=== PATIENT | female | born 1990 | race Caucasian/White ===

== ENCOUNTER 2016-05-01 17:17 | Emergency (ER) | payer MEDICAID ==
[~2016-05-01] VITALS: Ht 162.6 cm; Wt 65.5 kg
[~2016-05-01 17:17] MED LIST: CYMB30CA PO; FERR324T4 PO; IBUP-238 PO; MEDR150P IM; PROZ20CA11 PO; TRAZ50TA4 PO
[2016-05-01 17:24] VITALS: BP 122/84; PULSE 68; RESP 16; TEMP 98; O2SAT 99
[2016-05-01] MEDS ORDERED: PENI250T59 PO (17:34)
[2016-05-01] MEDS ORDERED: TRAM50TA PO (17:34)
--- NOTE | 2016-05-01 17:35 | PD ---
HPI Chief Complaint: Oral / Dental Pain or Problem Time Seen by Provider: 17:34 Travel History International Travel<30 days: No Contact w/Intl Traveler<30days: No Traveled to known affect area: No History of Present Illness HPI 25-year-old female presents to the emergency department for evaluation of left upper dental pain for 1 day. Patient states she has had intermittent left upper dental pain for several months. States that usually the pain lasts only a few minutes and resolves on its own. States that today the pain has been constant since this morning. States she has taken multiple doses of ibuprofen and tylenol today without relief of symptoms. Pain is aggravated with palpation , talking, air, fluids. Denies any fever, chills, nausea, vomiting, difficulty swallowing, facial swelling. Denies , last menstrual cycle was 2 weeks ago. No other complaints. PFSH Past Medical History Anxiety: Yes Depression: Yes Cardiovascular Problems: No Diabetes: No Diminished Hearing: No Genitourinary: No Hepatitis: No Hiatal Hernia: No Musculoskeletal: Yes (CERVICAL SURGERY 06/2013) Neurologic: No Reproductive: Yes (OVARIAN CYST) Respiratory: No Immunizations Current: Yes Thyroid Disease: Yes (PT STATED "HYPERTHYROID" ) ?: Not LMP: 2 WEEKS AGO : 2 Para: 2 Miscarriage: 0 : 0 Past Surgical History Genitourinary Surgery: Yes (RIGHT NEPHROSTOMY TUBE PLACEMENT AND REMOVAL) Other Surgery: No Social History Alcohol Use: No Tobacco Use: No Substance Use: No Allergies-Medications (Allergen,Severity, Reaction): Coded Allergies: Ativan (Verified Adverse Reaction, Severe, "Makes me act crazy", 05/01/16) Reported Meds & Prescriptions Reported Meds & Active Scripts Active Penicillin Vk (Penicillin V Potassium) 250 Mg Tab 500 Mg PO Q8H 10 Days Tramadol (Tramadol HCl) 50 Mg Tab 50 Mg PO Q6H PRN Ferrous Sulfate 324 Mg Tab 325 Mg PO DAILY Motrin (Ibuprofen) 800 Mg Tab 800 Mg PO TID Reported Cymbalta (Duloxetine HCl) 30 Mg Cap 30 Mg PO DAILY Prozac (Fluoxetine HCl) 20 Mg Cap 20 Mg PO DAILY Depoprovera 150 Mg Vial (Medroxyprogesterone Acetate) 150 Mg/Ml Susp 150 Mg IM Q90D Trazodone Hcl (Trazodone HCl) 50 Mg Tab 50 Mg PO HS Review of Systems Except as stated in HPI: all other systems reviewed are Neg Physical Exam Narrative GENERAL: Well-nourished and well-developed pleasant patient in no acute distress who is nontoxic appearing. SKIN: Warm and dry. HEAD: Normocephalic and atraumatic. No facial swelling. EYES: No injection, drainage, or hyphema noted. PERRLA. EOMI. ENT: No nasal drainage noted. Oropharynx is clear and the TMs are normal with good landmarks. DENTAL: Left upper posterior molar with dental caries and tenderness to palpation of adjacent gingiva. No erythema, warmth, discharge or drainage. NECK: Supple and the trachea is midline. CARDIOVASCULAR: Regular rate and rhythm. RESPIRATORY: Breath sounds are equal bilaterally with no accessory muscle use, wheezing, rhonchi, or crackles. NEUROLOGICAL: Awake, alert, and oriented. Normal speech and gait. Cranial nerves are grossly intact. Data Data Last Documented VS Vital Signs Date Time Temp Pulse Resp B/P Pulse Ox O2 Delivery O2 Flow Rate FiO2 05/01/16 17:24 98.0 68 16 122/84 99 MDM Medical Decision Making Medical Screen Exam Complete: Yes Emergency Medical Condition: Yes Differential Diagnosis Dentalgia versus dental caries versus dental infection Narrative Course 25-year-old female presents to the emergency department for evaluation of left upper dental pain. Patient is afebrile, vital signs are stable. She does have a cavity to the left upper posterior molar but no signs of infection or abscess. We'll prescribe her a short course of tramadol and give her a prescription of penicillin VK. Instructed to follow-up with a dentist. Patient verbalizes understanding and agreement with treatment plan. Diagnosis Primary Impression: Pain due to dental caries Referrals: Dentist Patient Instructions: Dental Caries (ED), General Instructions Additional Instructions: Take medications as prescribed with food and a full glass of water. Do not take Tramadol with alcohol or while driving. Follow-up with your Primary Care Physician. Return to the ED for any acute worsening of symptoms. Med/Other Pt SpecificInfo: Prescription(s) given Scripts Penicillin V Potassium (Penicillin Vk)250 Mg [id number] Mg PO Q8H 10 Days Ref 0 Prov:Molly Mcpherson MD 05/01/16 Tramadol 50 Mg Tab50 Mg PO Q6H PRN (PAIN GREATER THAN 6) #12 TAB Ref 0 Prov:Molyl Mcpherson MD 05/01/16 Disposition: 01 DISCHARGE HOME Condition: Stable Fela Herrera May 01, 2016 17:35
== END 2016-05-01 17:45 | disposition home or self-care (01) ==
LOC: PHEFT 17:17
DX: K02.9 Dental caries, unspecified (principal)
CPT/HCPCS: 99282

== ENCOUNTER 2016-12-12 19:50 | Emergency (ER) | payer MEDICAID ==
[~2016-12-12] VITALS: Ht 162.6 cm; Wt 62.8 kg
[~2016-12-12 19:50] MED LIST changes: +PENI250T59 PO; +TRAM50TA PO
[2016-12-12 20:19] VITALS: BP 136/100; PULSE 78; RESP 18; TEMP 97.6
--- NOTE | 2016-12-12 21:30 | PD ---
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 She has nausea and vomiting today. She has a history of irregular vaginal bleeding for a year and a half and has been diagnosed with endometriosis in the past. She denies any fever or diarrhea. She has a history of kidney stones and had a stent in her right kidney at one time. She states she has an ovarian cyst she is afraid this might be the ovarian cyst. She does not have any primary care physician or technical planner yet at this time. She has an appointment with a technical planner on the of next month. Her last ultrasound of the pelvis with Doppler transvaginal was done in April of last year and was normal. PFSH Past Medical History Anxiety: Yes Depression: Yes Cardiovascular Problems: No Diabetes: No Diminished Hearing: No Genitourinary: No Hepatitis: No Hiatal Hernia: No Musculoskeletal: Yes (Cervical) Neurologic: No Reproductive: Yes (Ovarian cyst) Respiratory: No Immunizations Current: Yes Thyroid Disease: Yes (Hyper-) ?: Unknown LMP: 12/04 : 2 Para: 2 Miscarriage: 0 : 0 Past Surgical History Genitourinary Surgery: Yes (Rt. nephrostomy tube placement and removal ) Other Surgery: No Social History Alcohol Use: No Tobacco Use: No Substance Use: No Allergies-Medications (Allergen,Severity, Reaction): Coded Allergies: lorazepam (Unverified Adverse Reaction, Severe, "Makes me act crazy", 12/12) Reported Meds & Prescriptions Reported Meds & Active Scripts Active No Active Prescriptions or Reported Medications Review of Systems Except as stated in HPI: all other systems reviewed are Neg Physical Exam Narrative GENERAL: The patient is alert, oriented 3 in moderate apparent distress with her left-sided pain. Her vital signs show blood pressure 126/100 but otherwise normal. SKIN: Focused skin assessment warm/dry. No skin rash nor needle tracks are present. HEAD: Atraumatic. Normocephalic. EYES: Pupils equal and round. No scleral icterus. No injection or drainage. ENT: No nasal bleeding or discharge. Mucous membranes pink and moist. NECK: Trachea midline. No JVD. CARDIOVASCULAR: Regular rate and rhythm. No murmur appreciated. RESPIRATORY: No accessory muscle use. Clear to auscultation. Breath sounds equal bilaterally. GASTROINTESTINAL: Abdomen soft, with tenderness to direct palpation over the left flank and left pelvic area, nondistended. Hepatic and splenic margins not palpable. No guarding or rebound is present. MUSCULOSKELETAL: No obvious deformities. No clubbing. No cyanosis. No edema. NEUROLOGICAL: Awake and alert. No obvious cranial nerve deficits. Motor grossly within normal limits. Normal speech. PSYCHIATRIC: Appropriate mood and affect; insight and judgment normal. GENITOURINARY: Normal external genitalia without lesions or erythema. Vaginal vault without blood or drainage. Cervical os was closed with clear, non-foul- smelling drainage. There is cervical motion tenderness. Uterus slightly tender and nonenlarged. The left adnexa is tender without masses. Right adnexa is nontender Data Data Last Documented VS Vital Signs Date Time Temp Pulse Resp B/P (MAP) Pulse Ox O2 Delivery O2 Flow Rate FiO2 12/12/16 23:48 62 16 126/88 (101) 99 12/12/16 20:19 97.6 Orders Orders Urinalysis - C+S If Indicated (12/12/16 21:08) Ed Urine Pregnancytest Poc (12/12/16 21:08) Complete Blood Count With Diff (12/12/16 21:31) Basic Metabolic Panel (Bmp) (12/12/16 21:31) Ecg Monitoring (12/12/16 21:31) Iv Access Insert/Monitor (12/12/16 21:31) Ketorolac Inj (Toradol Inj) (12/12/16 21:45) Ondansetron Inj (Zofran Inj) (12/12/16 21:45) Sodium Chloride 0.9% Flush (Ns Flush) (12/12/16 21:45) Sodium Chlor 0.9% 1000 Ml Inj (Ns 1000 M (12/12/16 21:31) Ct Abd/Pel W/O Iv Contrast (12/12/16 22:03) Hydromorphone Pf Inj (Dilaudid Pf Inj) (12/12/16 22:15) Ondansetron Inj (Zofran Inj) (12/12/16 22:15) Us Pelvis Comp W Dop Transvag (12/12/16 23:31) Labs Laboratory Tests Test 12/12/16 21:22 12/12/16 21:35 12/12/16 22:34 Urine Color YELLOW Urine Turbidity CLEAR Urine pH 7.0 Urine Specific [place] 1.026 Urine Protein NEG mg/dL Urine Glucose (UA) NEG mg/dL Urine Ketones TRACE mg/dL Urine Occult Blood NEG Urine Nitrite NEG Urine Bilirubin NEG Urine Leukocyte Esterase NEG Urine RBC 0-3 /hpf Urine WBC 0-2 /hpf Urine Squamous Epithelial Cells 6-8 /hpf Urine Amorphous Sediment SMALL Urine Mucus FEW /lpf Microscopic Urinalysis Comment CULT NOT INDICATED White Blood Count 10.1 TH/MM3 Red Blood Count 4.85 MIL/MM3 Hemoglobin 15.4 GM/DL Hematocrit 45.9 % Mean Corpuscular Volume 94.7 FL Mean Corpuscular Hemoglobin 31.6 PG Mean Corpuscular Hemoglobin Concent 33.4 % Red Cell Distribution Width 12.2 % Platelet Count 147 TH/MM3 Mean Platelet Volume 10.9 FL Neutrophils (%) (Auto) 80.2 % Lymphocytes (%) (Auto) 12.8 % Monocytes (%) (Auto) 5.2 % Eosinophils (%) (Auto) 0.8 % Basophils (%) (Auto) 1.0 % Neutrophils # (Auto) 8.1 TH/MM3 Lymphocytes # (Auto) 1.3 TH/MM3 Monocytes # (Auto) 0.5 TH/MM3 Eosinophils # (Auto) 0.1 TH/MM3 Basophils # (Auto) 0.1 TH/MM3 CBC Comment AUTO DIFF Differential Comment AUTO DIFF CONFIRMED Platelet Estimate LOW Platelet Morphology Comment NORMAL Red Cell Morphology Comment NORMAL Blood Urea Nitrogen 12 MG/DL Creatinine 0.59 MG/DL Random Glucose 98 MG/DL Calcium Level 7.6 MG/DL Sodium Level 139 MEQ/L Potassium Level 3.9 MEQ/L Chloride Level 109 MEQ/L Carbon Dioxide Level 23.2 MEQ/L Anion Gap 7 MEQ/L Estimat Glomerular Filtration Rate 121 ML/MIN [facility] Medical Decision Making Medical Screen Exam Complete: Yes Emergency Medical Condition: Yes Medical Record Reviewed: Yes Interpretation(s) The [id number] urine test is negative. The urine shows trace ketones, specific gravity 1.026 but is otherwise unremarkable and culture is not indicated. The CT abdomen/pelvis is unremarkable. The basic metabolic profile shows a calcium of 7.6 but is otherwise normal. The CBC is normal except for hemoglobin of 15.4 and 80% neutrophils. The ultrasound is normal. Differential Diagnosis Ruptured ovarian cyst, torsion ovary, urinary stone, urinary tract infection, drug seeking behavior, electrolyte disorder, , ruptured ectopic , endometriosis, anemia Narrative Course Despite the normal blood work, CAT scan and normal urine the patient states that she wants an ultrasound. She states she knows something's wrong. The test, blood work, ultrasound and CT scan and urine are all normal. The patient has pelvic pain etiology undetermined. She will need to see a technical planner about this. She may need to be scoped to rule out etiologies such as endometriosis. Diagnosis Primary Impression: Pain, abdominal, unknown etiology Additional Instructions: As we discussed, to find out what's wrong apparently will require a technical planner. Do not miss your appointment. Take the Motrin 600 mg 3 times a day. Med/Other Pt SpecificInfo: Existing Med Changed Scripts No Active Prescriptions or Reported Meds Disposition: DISCHARGE HOME Condition: Stable Ger Rey MD Dec 12, 2016 21:30
[2016-12-12] MEDS ORDERED: SODIUM CHLOR 0.9% 1000 ML INJ 1,000 ML IV ONE (21:31)
[2016-12-12 21:43] LABS: BLOOD, URINE NEG (NEG); GLUCOSE,URINE NEG (NEG); KETONE, URINE TRACE mg/dL (NEG); NITRITE,URINE NEG (NEG)
[2016-12-12] MEDS ORDERED: KETOROLAC TROMETHAMINE 30 MG/ML (IVP) VIAL IVP ONE (21:45)
[2016-12-12] MEDS ORDERED: SODIUM CHLORIDE 0.9% FLUSH 10 ML FLUSH IVF PRN (21:45)
[2016-12-12] MEDS ORDERED: ONDANSETRON HCL 4 MG/2 ML VIAL IVP ONE (21:45)
[2016-12-12 21:54] LABS: URINE COLOR YELLOW (YELLW/STRAW)
[2016-12-12 21:55] LABS: MUCUS URINE FEW /lpf (OCC); RBC, URINE 0-3 /hpf (0-3)
[2016-12-12 21:56] LABS: COMMENT (UR) CULT NOT INDICATED; CULTURE IF INDICATED CULT NOT INDICATED; WBC, URINE 0-2 /hpf (0-5)
[2016-12-12 22:14] LABS: AUTOMATED NEUTROPHIL # 8.1 TH/MM3 (1.8-7.7); BASOPHIL # 0.1 TH/MM3 (0-0.2); EOSINOPHIL # 0.1 TH/MM3 (0-0.4); EOSINOPHIL % 0.8 % (0.0-4.0); HEMATOCRIT 45.9 % (35.0-46.0); LYMPH % 12.8 % (9.0-44.0); LYMPHOCYTE # 1.3 TH/MM3 (1.0-4.8); MEAN CELL VOLUME 94.7 FL (80.0-100.0); MEAN CORPUSCULAR HEMOGLOBIN 31.6 PG (27.0-34.0); MEAN CORPUSCULAR HGB CONC 33.4 % (32.0-36.0); MONO % 5.2 % (0.0-8.0); NEUT % 80.2 % (16.0-70.0); PLATELET COUNT 147 TH/MM3 (150-450); RED BLOOD COUNT 4.85 MIL/MM3 (4.00-5.30); RED CELL DISTRIBUTION WIDTH 12.2 % (11.6-17.2); WHITE BLOOD COUNT 10.1 TH/MM3 (4.0-11.0)
[2016-12-12] MEDS ORDERED: ONDANSETRON HCL 4 MG/2 ML VIAL IV ONE (22:15)
[2016-12-12] MEDS ORDERED: HYDROmorphone HCL PF 1 MG/ML VIAL IVP ONE (22:15)
[2016-12-12 22:22] LABS: HEMO FLAGS AUTO DIFF
--- NOTE | 2016-12-12 22:43 | RADRPT ---
EXAM DATE/TIME: 12/12/2016 22:21 [facility] COMPARISON: CT ABDOMEN & PELVIS W CONTRAST, July 10, 2013, 5:00. INDICATIONS : Left flank and pelvic pain. ORAL CONTRAST: No oral contrast ingested. RADIATION DOSE: 9.64 CTDIvol (mGy) MEDICAL HISTORY : None SURGICAL HISTORY : None. ENCOUNTER: Initial ACUITY: 1 day PAIN SCALE: 10/10 LOCATION: Left flank TECHNIQUE: Volumetric scanning of the abdomen and pelvis was performed. Using automated exposure control and ad justment of the mA and/or kV according to patient size, radiation dose was kept as low as reasonably achievable to obtain optimal diagnostic quality images. DICOM format image data is available electro nically for review and comparison. The lack of IV contrast limits the diagnosis for certain organ pat hology. FINDINGS: LOWER LUNGS: The visualized lower lungs are clear. LIVER: Homogeneous density without lesion. There is no dilation of the biliary tree. No calcified gallston es. SPLEEN: Normal size without lesion. PANCREAS: Within normal limits. KIDNEYS: Normal in size and shape. There is no mass, stone, or hydronephrosis. ADRENAL GLANDS: Within normal limits. VASCULAR: There is no aortic aneurysm. BOWEL/MESENTERY: The stomach, small bowel, and colon demonstrate no acute abnormality. There is no free intraperitone al air or fluid. ABDOMINAL WALL: Within normal limits. RETROPERITONEUM: There is no lymphadenopathy. BLADDER: No wall thickening or mass. No calcified stones. REPRODUCTIVE: Within normal limits. INGUINAL: There is no lymphadenopathy or hernia. MUSCULOSKELETAL: Within normal limits for patient age. No significant change from 2014. CONCLUSION: 1. Unremarkable and stable CT scan of the abdomen and pelvis compared to the prior study from 2013 2. No calcified renal stones or hydronephrosis. Jorge Alberto Jackson MD on December 12, 2016 at 22:39 Board Certified Radiologist. This report was verified electronically.
[2016-12-12 22:56] LABS: POTASSIUM 3.9 MEQ/L (3.5-5.1)
[2016-12-12 22:59] LABS: BICARBONATE 23.2 MEQ/L (21.0-32.0)
[2016-12-12 23:16] LABS: PLATELET ESTIMATE SMEAR LOW (NORMAL); PLATELET MORPHOLOGY NORMAL (NORMAL); SCAN/DIFF AUTO DIFF CONFIRMED
[2016-12-12 23:48] VITALS: BP 126/88; PULSE 62; RESP 16; O2SAT 99
--- NOTE | 2016-12-13 00:46 | RADRPT ---
EXAM DATE/TIME: 12/12/2016 23:59 [facility] COMPARISON: CT ABDOMEN & PELVIS W/O CONTRAST, December 12, 2016, 22:21. US PELVIS,COMP,W DOPLR, TRANS VAG, April 25, 2015, 9:25. INDICATIONS : Pain. MEDICAL HISTORY : Hyperthyroidism. Ovarian cysts. Depression. Anxiety. SURGICAL HISTORY : Right nephrostomy tube placement and removal. Cervical surgery. ENCOUNTER: Subsequent ACUITY: 1 day PAIN SCORE: 5/10 LOCATION: Bilateral pelvis MEASUREMENTS: UTERUS: 7.0 x 3.7 x 3.6 cm ENDOMETRIAL STRIPE: 11 mm FINDINGS: UTERUS: The myometrium has homogeneous echotexture without mass. RIGHT OVARY: Not visualized. No adnexal mass is seen. LEFT OVARY: Not visualized. No adnexal mass is seen. MISCELLANEOUS: No free fluid. CONCLUSION: 1. Visualized structures have a normal appearance. 2. Please note that neither ovary is visualized. Jeffrey Pena MD on December 13, 2016 at 0:42 Board Certified Radiologist. This report was verified electronically.
== END 2016-12-13 01:05 | disposition home or self-care (01) ==
LOC: PHED 19:50
DX: R10.9 Unspecified abdominal pain (principal); R10.2 Pelvic and perineal pain; R11.2 Nausea with vomiting, unspecified; E07.9 Disorder of thyroid, unspecified; Z87.42 Personal history of other diseases of the female genital tract; Z87.442 Personal history of urinary calculi; Z86.59 Personal history of other mental and behavioral disorders; Z87.39 Personal history of other diseases of the musculoskeletal system and connective tissue
CPT/HCPCS: 74176; 76830; 76856; 80048; 81001; 84703; 85025; 93975; 96361; 96374; 96375; 99285; J1170; J1885; J2405; J7030

== ENCOUNTER 2017-09-13 18:10 | Observation (INO) | payer MEDICAID ==
[~2017-09-13] VITALS: Ht 162.6 cm; Wt 74.4 kg
[~2017-09-13 18:10] MED LIST changes: -CYMB30CA PO; -FERR324T4 PO; -IBUP-238 PO; -MEDR150P IM; -PENI250T59 PO; +PREN29TA PO; -PROZ20CA11 PO; -TRAM50TA PO; -TRAZ50TA4 PO
[2017-09-13 18:21] VITALS: BP 116/76; PULSE 87; RESP 16; TEMP 98.2; O2SAT 100
--- NOTE | 2017-09-13 18:42 | PD ---
HPI Chief Complaint: GI Complaint Time Seen by Provider: 18:30 Travel History International Travel<30 days: No Contact w/Intl Traveler<30days: No Traveled to known affect area: No History of Present Illness HPI This 27-year-old female complaining of vomiting. She has been vomiting throughout the day. She estimates she has vomited 5 times in the last hour. She is feeling weak and dizzy. She is about 19 weeks . She has had some nausea and vomiting earlier in the but it felt well yesterday. There has not been any diarrhea. There has not been any vaginal bleeding. She is 5 para 3 PFSH Past Medical History Anxiety: Yes Depression: Yes Cardiovascular Problems: No Diabetes: No Diminished Hearing: No Genitourinary: No Hepatitis: No Hiatal Hernia: No Hypertension: No Medical other: No Musculoskeletal: Yes (Cervical) Neurologic: No Reproductive: Yes (Ovarian cyst) Respiratory: No Immunizations Current: Yes Thyroid Disease: Yes (Hyper-) ?: LMP: 05/10/17 : 2 Para: 2 Miscarriage: 0 : 0 Past Surgical History Genitourinary Surgery: Yes (Rt. nephrostomy tube placement and removal ) Other Surgery: No Social History Alcohol Use: No Tobacco Use: No Substance Use: No Allergies-Medications (Allergen,Severity, Reaction): Coded Allergies: lorazepam (Unverified Adverse Reaction, Severe, "Makes me act crazy", 09/13) Reported Meds & Prescriptions Reported Meds & Active Scripts Active Reported Plus Iron 29-1 mg ( Vit-Iron Carbonyl) 29 Mg Iron-1 Mg Tab 1 Tab PO DAILY Review of Systems General / Constitutional: No: Fever, Chills Eyes: No: Diploplia, Blurred Vision HENT: No: Headaches, Vertigo Cardiovascular: No: Chest Pain or Discomfort, Palpitations Respiratory: No: Cough Gastrointestinal: Positive: Nausea, Vomiting, No: Diarrhea, Abdominal Pain Genitourinary: No: Pelvic Pain, Vaginal Bleeding Musculoskeletal: No: Myalgias Skin: No Rash, No Itching Psychiatric: No: Anxiety Physical Exam Narrative GENERAL: Well-developed female SKIN: Focused skin assessment warm/dry. HEAD: Atraumatic. Normocephalic. EYES: Pupils equal and round. No scleral icterus. No injection or drainage. ENT: No nasal bleeding or discharge. Mucous membranes pink and moist. NECK: Trachea midline. No JVD. CARDIOVASCULAR: Regular rate and rhythm. No murmur appreciated. RESPIRATORY: No accessory muscle use. Clear to auscultation. Breath sounds equal bilaterally. GASTROINTESTINAL: Abdomen soft, non-tender, nondistended. Hepatic and splenic margins not palpable. MUSCULOSKELETAL: No obvious deformities. No clubbing. No cyanosis. No edema. NEUROLOGICAL: Awake and alert. No obvious cranial nerve deficits. Motor grossly within normal limits. Normal speech. PSYCHIATRIC: Appropriate mood and affect; insight and judgment normal. Data Data Last Documented VS Vital Signs Date Time Temp Pulse Resp B/P (MAP) Pulse Ox O2 Delivery O2 Flow Rate FiO2 09/13/17 18:21 98.2 87 16 116/76 (89) 100 Orders Orders Complete Blood Count With Diff (09/13/17 18:34) Comprehensive Metabolic Panel (09/13/17 18:34) Urinalysis - C+S If Indicated (09/13/17 18:34) Sodium Chlor 0.9% 1000 Ml Inj (Ns 1000 M (09/13/17 18:45) Sodium Chlor 0.9% 1000 Ml Inj (Ns 1000 M (09/13/17 18:45) Ondansetron Inj (Zofran Inj) (09/13/17 18:45) MDM Medical Decision Making Medical Screen Exam Complete: Yes Emergency Medical Condition: Yes Medical Record Reviewed: Yes Differential Diagnosis Differential includes acute vomiting, , nausea and vomiting of Narrative Course Lab work has been ordered as well as IV fluids and Zofran. Disposition will be based on clinical response Diagnosis Primary Impression: Acute vomiting Additional Impression: Disposition: DISCHARGE HOME Condition: Stable Toño Saez MD September 13, 2017 18:42
[2017-09-13] MEDS ORDERED: SODIUM CHLOR 0.9% 1000 ML INJ 1,000 ML IV ONE ×2 (18:45)
[2017-09-13] MEDS ORDERED: ONDANSETRON HCL 4 MG/2 ML VIAL IV PUSH ONE ×2 (18:45→19:30)
[2017-09-13 19:00] LABS: AUTOMATED NEUTROPHIL # 8.3 TH/MM3 (1.8-7.7); BASOPHIL # 0.3 TH/MM3 (0-0.2); BASOPHIL % 2.8 % (0.0-2.0); EOSINOPHIL # 0.1 TH/MM3 (0-0.4); EOSINOPHIL % 0.8 % (0.0-4.0); HEMATOCRIT 40.2 % (35.0-46.0); HEMOGLOBIN 13.7 GM/DL (11.6-15.3); LYMPH % 13.4 % (9.0-44.0); LYMPHOCYTE # 1.4 TH/MM3 (1.0-4.8); MEAN CELL VOLUME 93.2 FL (80.0-100.0); MEAN CORPUSCULAR HEMOGLOBIN 31.8 PG (27.0-34.0); MEAN CORPUSCULAR HGB CONC 34.1 % (32.0-36.0); MEAN PLATELET VOLUME 10.8 FL (7.0-11.0); MONO % 4.1 % (0.0-8.0); MONOCYTE # 0.4 TH/MM3 (0-0.9); NEUT % 78.9 % (16.0-70.0); PLATELET COUNT 166 TH/MM3 (150-450); RED BLOOD COUNT 4.31 MIL/MM3 (4.00-5.30); RED CELL DISTRIBUTION WIDTH 11.7 % (11.6-17.2); WHITE BLOOD COUNT 10.5 TH/MM3 (4.0-11.0)
[2017-09-13 19:01] LABS: CHLORIDE 107 MEQ/L (98-107); SODIUM (NA) 138 MEQ/L (136-145)
[2017-09-13 19:04] LABS: CALCIUM 8.1 MG/DL (8.5-10.1)
[2017-09-13 19:05] LABS: ALBUMIN 3.1 GM/DL (3.4-5.0); BICARBONATE 19.5 MEQ/L (21.0-32.0); BLOOD UREA NITROGEN 6 MG/DL (7-18); GLUCOSE,RANDOM 79 MG/DL (74-106)
[2017-09-13 19:08] LABS: ALT (GPT) 37 U/L (10-53); AST (GOT) 32 U/L (15-37); CREATININE 0.45 MG/DL (0.50-1.00); GLOMERULAR FILTRATION RATE 165 ML/MIN (>89)
[2017-09-13 19:09] LABS: TOTAL BILIRUBIN ADULT 0.3 MG/DL (0.2-1.0); TOTAL PROTEIN 7.1 GM/DL (6.4-8.2)
[2017-09-13 19:11] LABS: ALKALINE PHOSPHATASE 45 U/L (45-117)
[2017-09-13 19:50] VITALS: BP 118/77; PULSE 89; RESP 16; O2SAT 100
[2017-09-13] MEDS: SODIUM CHLOR 0.9% 1000 ML INJ 1,000 ML IV SCH ×2 (20:00→21:17)
[2017-09-13] MEDS ORDERED: PROMETHAZINE INJ 25 MG/ML VIAL IM ONE (20:15)
--- NOTE | 2017-09-13 20:16 | PD ---
Physical Exam Time Seen by Provider: 20:15 Data Data Last Documented VS Vital Signs Date Time Temp Pulse Resp B/P (MAP) Pulse Ox O2 Delivery O2 Flow Rate FiO2 09/14/17 01:29 09/13/17 23:27 99 16 100 Room Air 09/13/17 18:21 98.2 Orders Orders Complete Blood Count With Diff (09/13/17 18:34) Comprehensive Metabolic Panel (09/13/17 18:34) Urinalysis - C+S If Indicated (09/13/17 18:34) Sodium Chlor 0.9% 1000 Ml Inj (Ns 1000 M (09/13/17 18:45) Sodium Chlor 0.9% 1000 Ml Inj (Ns 1000 M (09/13/17 18:45) Ondansetron Inj (Zofran Inj) (09/13/17 18:45) Ondansetron Inj (Zofran Inj) (09/13/17 19:30) Sodium Chlor 0.9% 1000 Ml Inj (Ns 1000 M (09/13/17 19:30) Promethazine Inj (Phenergan Inj) (09/13/17 20:15) Urine Culture (09/13/17 20:20) Admit Order (Ed Use Only) (09/13/17 21:19) Diphenhydramine Inj (Benadryl Inj) (09/13/17 23:15) Meclizine (Antivert) (09/14/17 02:45) Ob (2e) Additional Admit Info (09/14/17 03:37) Labs Laboratory Tests Test 09/13/17 18:40 09/13/17 20:20 White Blood Count 10.5 TH/MM3 Red Blood Count 4.31 MIL/MM3 Hemoglobin 13.7 GM/DL Hematocrit 40.2 % Mean Corpuscular Volume 93.2 FL Mean Corpuscular Hemoglobin 31.8 PG Mean Corpuscular Hemoglobin Concent 34.1 % Red Cell Distribution Width 11.7 % Platelet Count 166 TH/MM3 Mean Platelet Volume 10.8 FL Neutrophils (%) (Auto) 78.9 % Lymphocytes (%) (Auto) 13.4 % Monocytes (%) (Auto) 4.1 % Eosinophils (%) (Auto) 0.8 % Basophils (%) (Auto) 2.8 % Neutrophils # (Auto) 8.3 TH/MM3 Lymphocytes # (Auto) 1.4 TH/MM3 Monocytes # (Auto) 0.4 TH/MM3 Eosinophils # (Auto) 0.1 TH/MM3 Basophils # (Auto) 0.3 TH/MM3 CBC Comment DIFF FINAL Differential Comment Blood Urea Nitrogen 6 MG/DL Creatinine 0.45 MG/DL Random Glucose 79 MG/DL Total Protein 7.1 GM/DL Albumin 3.1 GM/DL Calcium Level 8.1 MG/DL Alkaline Phosphatase 45 U/L Aspartate Amino Transf (AST/SGOT) 32 U/L Alanine Aminotransferase (ALT/SGPT) 37 U/L Total Bilirubin 0.3 MG/DL Sodium Level 138 MEQ/L Potassium Level 3.3 MEQ/L Chloride Level 107 MEQ/L Carbon Dioxide Level 19.5 MEQ/L Anion Gap 12 MEQ/L Estimat Glomerular Filtration Rate 165 ML/MIN Urine Color YELLOW Urine Turbidity CLEAR Urine pH 7.0 Urine Specific [place] 1.010 Urine Protein NEG mg/dL Urine Glucose (UA) NEG mg/dL Urine Ketones 40 mg/dL Urine Occult Blood NEG Urine Nitrite NEG Urine Bilirubin NEG Urine Urobilinogen 0.2 MG/DL Urine Leukocyte Esterase NEG Urine RBC 0-3 /hpf Urine WBC 0-2 /hpf Urine Squamous Epithelial Cells 0-5 /hpf Urine Amorphous Sediment FEW Urine Bacteria MOD /hpf Microscopic Urinalysis Comment CULTURE INDICATED MDM Medical Record Reviewed: Yes Supervised Visit with MONI: No Diagnosis Primary Impression: Acute vomiting Additional Impression: Disposition: 01 DISCHARGE HOME Condition: Stable Ger Rey MD September 13, 2017 20:16
--- NOTE | 2017-09-13 20:23 | PD ---
Physical Exam Time Seen by Provider: 20:16 Narrative The patient is a 27-year-old female, G4, P2, A1 that started this morning with nausea and began later on today with vomiting. She does have vertigo and anytime she moves her head it makes her nauseated. She is 18 weeks . She denies any diarrhea. She is followed by Dr. Oconnor. Her past pregnancies have not been accompanied by significant hyperemesis gravidarum but have been associated with pyelonephritis. She denies any fever. Data Data Last Documented VS Vital Signs Date Time Temp Pulse Resp B/P (MAP) Pulse Ox O2 Delivery O2 Flow Rate FiO2 09/13/17 18:21 98.2 87 16 116/76 (89) 100 Orders Orders Complete Blood Count With Diff (09/13/17 18:34) Comprehensive Metabolic Panel (09/13/17 18:34) Urinalysis - C+S If Indicated (09/13/17 18:34) Sodium Chlor 0.9% 1000 Ml Inj (Ns 1000 M (09/13/17 18:45) Sodium Chlor 0.9% 1000 Ml Inj (Ns 1000 M (09/13/17 18:45) Ondansetron Inj (Zofran Inj) (09/13/17 18:45) Ondansetron Inj (Zofran Inj) (09/13/17 19:30) Sodium Chlor 0.9% 1000 Ml Inj (Ns 1000 M (09/13/17 19:30) Promethazine Inj (Phenergan Inj) (09/13/17 20:15) Urine Culture (09/13/17 20:20) Admit Order (Ed Use Only) (09/13/17 21:19) Labs Laboratory Tests Test 09/13/17 18:40 09/13/17 20:20 White Blood Count 10.5 TH/MM3 Red Blood Count 4.31 MIL/MM3 Hemoglobin 13.7 GM/DL Hematocrit 40.2 % Mean Corpuscular Volume 93.2 FL Mean Corpuscular Hemoglobin 31.8 PG Mean Corpuscular Hemoglobin Concent 34.1 % Red Cell Distribution Width 11.7 % Platelet Count 166 TH/MM3 Mean Platelet Volume 10.8 FL Neutrophils (%) (Auto) 78.9 % Lymphocytes (%) (Auto) 13.4 % Monocytes (%) (Auto) 4.1 % Eosinophils (%) (Auto) 0.8 % Basophils (%) (Auto) 2.8 % Neutrophils # (Auto) 8.3 TH/MM3 Lymphocytes # (Auto) 1.4 TH/MM3 Monocytes # (Auto) 0.4 TH/MM3 Eosinophils # (Auto) 0.1 TH/MM3 Basophils # (Auto) 0.3 TH/MM3 CBC Comment DIFF FINAL Differential Comment Blood Urea Nitrogen 6 MG/DL Creatinine 0.45 MG/DL Random Glucose 79 MG/DL Total Protein 7.1 GM/DL Albumin 3.1 GM/DL Calcium Level 8.1 MG/DL Alkaline Phosphatase 45 U/L Aspartate Amino Transf (AST/SGOT) 32 U/L Alanine Aminotransferase (ALT/SGPT) 37 U/L Total Bilirubin 0.3 MG/DL Sodium Level 138 MEQ/L Potassium Level 3.3 MEQ/L Chloride Level 107 MEQ/L Carbon Dioxide Level 19.5 MEQ/L Anion Gap 12 MEQ/L Estimat Glomerular Filtration Rate 165 ML/MIN Urine Color YELLOW Urine Turbidity CLEAR Urine pH 7.0 Urine Specific [place] 1.010 Urine Protein NEG mg/dL Urine Glucose (UA) NEG mg/dL Urine Ketones 40 mg/dL Urine Occult Blood NEG Urine Nitrite NEG Urine Bilirubin NEG Urine Urobilinogen 0.2 MG/DL Urine Leukocyte Esterase NEG Urine RBC 0-3 /hpf Urine WBC 0-2 /hpf Urine Squamous Epithelial Cells 0-5 /hpf Urine Amorphous Sediment FEW Urine Bacteria MOD /hpf Microscopic Urinalysis Comment CULTURE INDICATED MDM Medical Record Reviewed: Yes Supervised Visit with MONI: No Interpretation(s) The CBC is normal except for 79% neutrophils. The complete metabolic profile shows a potassium 3.3, albumin of 3.1, bicarb 19.5, calcium of 8.1 but is otherwise unremarkable. Differential Diagnosis Pyelonephritis, hyperemesis gravidarum, anemia, electrolyte disorder, renal insufficiency, small bowel obstruction-highly unlikely Narrative Course The patient is anxious. Later on after offering her Ativan, she states that this makes her "crazy". The Ativan was canceled. I discussed the patient with Dr. Lopez and she called Dr. Whitmore and Dr. Whitmore will take the patient. The patient will be admitted to Dr. Whitmore under 23 hour observation. Physician Communication Physician Communication I discussed the patient with Dr. Maki who discussed the patient with Dr. Damian Whitmore. The patient will be admitted to Dr. Whitmore. Diagnosis Primary Impression: Acute vomiting Additional Impression: Admitting Information Admitting Physician Requests: Observation Disposition: 01 DISCHARGE HOME Condition: Stable Ger Rey MD September 13, 2017 20:23
[2017-09-13 20:30] LABS: BILIRUBIN, URINE NEG (NEG); BLOOD, URINE NEG (NEG); GLUCOSE,URINE NEG (NEG); KETONE, URINE 40 mg/dL (NEG); NITRITE,URINE NEG (NEG); URINE COLOR YELLOW (YELLW/STRAW); URINE LEUKOCYTE ESTERASE NEG (NEG)
[2017-09-13 20:37] LABS: BACTERIA, URINE MOD /hpf; RBC, URINE 0-3 /hpf (0-3); SQUAMOUS EPITHELIAL CELL URINE 0-5 /hpf (0-5); WBC, URINE 0-2 /hpf (0-5)
[2017-09-13 20:38] LABS: AMORPHOUS SEDIMENT, URINE FEW
[2017-09-13] MEDS ORDERED: LORazepam 2 MG/ML VIAL IV PUSH ONE (21:00)
[2017-09-13] MEDS ORDERED: diphenhydrAMINE HCL 50 MG/ML VIAL IV PUSH ONE (23:15)
[2017-09-13 23:27] VITALS: BP 98/57; PULSE 99; RESP 16; O2SAT 100
[2017-09-14] MEDS ORDERED: MECLIZINE HCL 25 MG TAB PO PRN (02:45)
--- NOTE | 2017-09-14 09:43 | HHI.HP ---
HPI Chief Complaint dizziness Travel History International Travel<30 Days: No Contact w/Intl Traveler<30Days: No Known Affected Area: No History of Present Illness HPI Patient is a 27 yo F at 18 weeks gestation who presented as a [place] transfer from the ED due to complaints of dizziness, nausea and vomiting. She reports sxs started yesterday. She vomiting more than 10 times. She reports sensation of "the room spinning" worst with head movement to her left side. Denies any similar episodes in the past. Patient also report that yesterday she noticed blurry vision on left eye, she is able to see perfectly from right eye. She was given zofran which di not help with her nausea. Denies recent illness, sick contacts, fever, chill, RICHARDS, CP or SOB. Patient reports she was also feeling anxious. Denies LOF, contractions, or vaginal bleeding. Endorses movement. Weeks Gestation: 18 Para: 4 : 2 Miscarriage: 1 History Past Medical History Narrative Medical Graves' disease, patient is not on any medications Obstetric History Obstetric History No issues with this thus far x2 H/o of recurrent UTI during her past 2 pregnancies Patient had a nephrostomy tube placed during second due to obstructive hydronephrosis that she developed during . UTI and hydronephrosis resolved after she delivered per pt. 1 miscarriage Past Surgical History Narrative Surgical Right nephrostomy tube placement Family History Narrative Family History Mother- hepatitis, HF and DMT1 Social History Alcohol Use: No Tobacco Use: Yes (former smoker 4-5cig/day for 3 yrs, quit smoking in Apr 2017) Substance Abuse: No Allergies-Medications (Allergen,Severity, Reaction): Coded Allergies: lorazepam (Unverified Adverse Reaction, Severe, "Makes me act crazy", 09/13) Home Meds Active Scripts Promethazine (Phenergan) 25 Mg Tablet, 25 MG PO Q6H Y for NAUSEA OR VOMITING, # 56 TAB 0 Refills Prov:Liang Barlow MD, R1 09/14/17 Meclizine HCl (Meclizine 25) 25 Mg Tab, 25 MG PO DAILY Y for nausea, #30 TAB Prov:Liang Barlow MD, R1 09/14/17 Reported Medications Vit-Iron Carbonyl ( Plus Iron 29-1 mg) 29 Mg Iron-1 Mg Tab, 1 TAB PO DAILY for Nutritional Supplement, #30 TAB 0 Refills 02/10/17 Review of Systems Except as stated in HPI: all other systems reviewed are Neg (per HPI) Physical Exam Vital Signs Date Time Temp Pulse Resp B/P (MAP) Pulse Ox O2 Delivery O2 Flow Rate FiO2 09/14/17 01:29 09/13/17 23:27 99 16 98/57 (71) 100 Room Air 09/13/17 19:50 89 16 118/77 (91) 100 Room Air 09/13/17 18:21 98.2 87 16 116/76 (89) 100 Narrative GENERAL: Well-nourished, well-developed patient in no acute distress. SKIN: Warm and dry. HEAD: Normocephalic and atraumatic. EYES: No scleral icterus. No injection or drainage. blurry vision on Left eye. on no eye pain. EOMI. ENT: No nasal drainage noted. Mucous membranes pink. Airway patent. NECK: Supple, trachea midline. No JVD. CARDIOVASCULAR: Regular rate and rhythm without murmurs, gallops, or rubs. RESPIRATORY: Breath sounds equal bilaterally. No accessory muscle use. ABDOMEN/GI: Abdomen soft, non-tender, bowel sounds present, no rebound, no guarding Gravid to 18 weeks size GENITOURINARY: Membranes: intact FHT's: 160 EXTREMITIES: No cyanosis or edema. +2 PD pulses BL. BACK: Nontender without obvious deformity. No CVA tenderness. NEUROLOGICAL: Awake and alert. Motor and sensory grossly within normal limits. Cranial nerves 2-12 intact. No nystagmus noted on osbaldo-hallpike maneuver. Five out of 5 muscle strength in all muscle groups. Normal speech. Normal gait. Caprini VTE Risk Assessment Caprini VTE Risk Assessment: No/Low Risk (score <= 1) Caprini Risk Assessment Model Point Value = 1 Point Value = 2 Point Value = 3 Point Value = 5 Age 41-60 Minor surgery BMI > 25 kg/m2 Swollen legs Varicose veins or History of unexplained or recurrent spontaneous Oral contraceptives or hormone replacement Sepsis (< 1 month) Serious lung disease, including pneumonia (< 1 month) Abnormal pulmonary function Acute myocardial infarction Congestive heart failure (< 1 month) History of inflammatory bowel disease Medical patient at bed rest Age 61-74 Arthroscopic surgery Major open surgery (> 45 min) Laparoscopic surgery (> 45 min) Malignancy Confined to bed (> 72 hours) Immobilizing plaster cast Central venous access Age >= 75 History of VTE Family history of VTE Factor V Leiden Prothrombin [id number] Lupus anticoagulant Anticardiolipin antibodies Elevated serum homocysteine Heparin-induced thrombocytopenia Other congenital or acquired thrombophilia Stroke (< 1 month) Elective arthroplasty Hip, pelvis, or leg fracture Acute spinal cord injury (< 1 month) Prophylaxis Regimen Total Risk Factor Score Risk Level Prophylaxis Regimen 0-1 Low Early ambulation 2 Moderate Order ONE of the following: *Sequential Compression Device (SCD) *Heparin 5000 units SQ BID 3-4 Higher Order ONE of the following medications: *Heparin 5000 units SQ TID *Enoxaparin/Lovenox 40 mg SQ daily (WT < 150 kg, CrCl > 30 mL/min) *Enoxaparin/Lovenox 30 mg SQ daily (WT < 150 kg, CrCl > 10-29 mL/min) *Enoxaparin/Lovenox 30 mg SQ BID (WT < 150 kg, CrCl > 30 mL/min) AND/OR *Sequential Compression Device (SCD) 5 or more Highest Order ONE of the following medications: *Heparin 5000 units SQ TID (Preferred with Epidurals) *Enoxaparin/Lovenox 40 mg SQ daily (WT < 150 kg, CrCl > 30 mL/min) *Enoxaparin/Lovenox 30 mg SQ daily (WT < 150 kg, CrCl > 10-29 mL/min) *Enoxaparin/Lovenox 30 mg SQ BID (WT < 150 kg, CrCl > 30 mL/min) AND *Sequential Compression Device (SCD) Data Data Vital Signs Reviewed: Yes Orders Orders Complete Blood Count With Diff (09/13/17 18:34) Comprehensive Metabolic Panel (09/13/17 18:34) Urinalysis - C+S If Indicated (09/13/17 18:34) Sodium Chlor 0.9% 1000 Ml Inj (Ns 1000 M (09/13/17 18:45) Sodium Chlor 0.9% 1000 Ml Inj (Ns 1000 M (09/13/17 18:45) Ondansetron Inj (Zofran Inj) (09/13/17 18:45) Ondansetron Inj (Zofran Inj) (09/13/17 19:30) Sodium Chlor 0.9% 1000 Ml Inj (Ns 1000 M (09/13/17 19:30) Promethazine Inj (Phenergan Inj) (09/13/17 20:15) Urine Culture (09/13/17 20:20) Admit Order (Ed Use Only) (09/13/17 21:19) Diphenhydramine Inj (Benadryl Inj) (09/13/17 23:15) Meclizine (Antivert) (09/14/17 02:45) Ob (2e) Additional Admit Info (09/14/17 03:37) High Fall Risk Interventions CORY.QEVE (09/14/17 04:31) Diet Regular Basic (09/14/17 Breakfast) Labs Laboratory Tests Test 09/13/17 18:40 09/13/17 20:20 White Blood Count 10.5 Red Blood Count 4.31 Hemoglobin 13.7 Hematocrit 40.2 Mean Corpuscular Volume 93.2 Mean Corpuscular Hemoglobin 31.8 Mean Corpuscular Hemoglobin Concent 34.1 Red Cell Distribution Width 11.7 Platelet Count 166 Mean Platelet Volume 10.8 Neutrophils (%) (Auto) 78.9 Lymphocytes (%) (Auto) 13.4 Monocytes (%) (Auto) 4.1 Eosinophils (%) (Auto) 0.8 Basophils (%) (Auto) 2.8 Neutrophils # (Auto) 8.3 Lymphocytes # (Auto) 1.4 Monocytes # (Auto) 0.4 Eosinophils # (Auto) 0.1 Basophils # (Auto) 0.3 CBC Comment DIFF FINAL Differential Comment Blood Urea Nitrogen 6 Creatinine 0.45 Random Glucose 79 Total Protein 7.1 Albumin 3.1 Calcium Level 8.1 Alkaline Phosphatase 45 Aspartate Amino Transf (AST/SGOT) 32 Alanine Aminotransferase (ALT/SGPT) 37 Total Bilirubin 0.3 Sodium Level 138 Potassium Level 3.3 Chloride Level 107 Carbon Dioxide Level 19.5 Anion Gap 12 Estimat Glomerular Filtration Rate 165 Urine Color YELLOW Urine Turbidity CLEAR Urine pH 7.0 Urine Specific [place] 1.010 Urine Protein NEG Urine Glucose (UA) NEG Urine Ketones 40 Urine Occult Blood NEG Urine Nitrite NEG Urine Bilirubin NEG Urine Urobilinogen 0.2 Urine Leukocyte Esterase NEG Urine RBC 0-3 Urine WBC 0-2 Urine Squamous Epithelial Cells 0-5 Urine Amorphous Sediment FEW Urine Bacteria MOD Microscopic Urinalysis Comment CULTURE INDICATED Date/Time Source Procedure Growth Status 09/13/17 20:20 Urine Clean Catch Urine Culture Pending Received Assessment/Plan Problem List: (1) 18 weeks gestation of ICD Codes: Z3A.18 - 18 weeks gestation of Plan: Patient is a 27 yo F at 18 weeks gestation who presented as a [place] transfer from the ED due to complaints of dizziness, nausea and vomiting. IUP at 18 weeks gestation 1. Patient reports improvement of sxs today. No vomiting since she has been in observation in OB floor.. Pt able to tolerate breakfast. reports she feels well. Dizziness resolved. Patient able to walk independently without any issues. 2. encourage oral hydration 3. FHT 160 4. c/w Phenergan PRN for N/V 5. meclizine for vertigo PRN 6. Pt given print out for her to perform eply maneuvers at home 6. ENT referral for evaluation of vertigo SDW Dr. Whitmore (2) Vertigo ICD Codes: R42 - Dizziness and giddiness Status: Resolved Plan: see plan above (3) Nausea & vomiting ICD Codes: R11.2 - Nausea with vomiting, unspecified Status: Resolved Plan: see plan above Liang Barlow MD, R1 Sep 14, 2017 09:43
[2017-09-14] MEDS ORDERED: MECL1TAB42 PO (10:55)
--- NOTE | 2017-09-14 10:56 | HHI.DCPOC ---
Discharge Care Plan Diagnosis: (1) 18 weeks gestation of (2) Vertigo Goals to Promote Your Health * To prevent worsening of your condition and complications * To maintain your health at the optimal level Directions to Meet Your Goals Take your medications as prescribed Follow your dietary instruction Follow activity as directed Keep your appointments as scheduled Take your immunizations and boosters as scheduled If your symptoms worsen call your PCP, if no PCP go to Urgent Care Center or Emergency Room Smoking is Dangerous to Your Health. Avoid second hand smoke Call the 24-hour hour crisis hotline for domestic abuse at Liang Barlow MD, R1 Sep 14, 2017 10:56
[2017-09-14] MEDS ORDERED: PROM25TA10 PO (11:00)
== END 2017-09-14 11:15 | disposition home or self-care (01) ==
LOC: PHED 18:10 → PHEDA 21:23 → UNDOADMOB 21:23 → H2EA 09-14 03:38
PROVIDERS: ADMIT Obstetrics & Gynecology; ATTEND Obstetrics & Gynecology
DX: O21.9 Vomiting of pregnancy, unspecified (principal); O26.892 Other specified pregnancy related conditions, second trimester; R42 Dizziness and giddiness; O99.282 Endocrine, nutritional and metabolic diseases complicating pregnancy, second trimester; E05.00 Thyrotoxicosis with diffuse goiter without thyrotoxic crisis or storm; O99.342 Other mental disorders complicating pregnancy, second trimester; F32.9 Major depressive disorder, single episode, unspecified; F41.9 Anxiety disorder, unspecified; Z3A.18 18 weeks gestation of pregnancy; Z87.891 Personal history of nicotine dependence
CPT/HCPCS: 80053; 81001; 85025; 87086; 96361; 96372; 96374; 99285; G0378; J1200; J2405; J2550; J7030

== ENCOUNTER 2017-09-16 10:09 | Emergency (ER) | payer MEDICAID ==
[~2017-09-16 10:09] MED LIST changes: +MECL1TAB42 PO; +PROM25TA10 PO
--- NOTE | 2017-09-16 11:12 | PD ---
HPI Chief Complaint My vertigo is not better Date Seen: Sep 16, 2017 Time Seen: 11:07 Travel History International Travel<30 Days: No Contact w/Intl Traveler<30Days: No Known Affected Area: No History of Present Illness HPI 27-year-old 3 para 2 at 18+ weeks gestation who was recently diagnosed with vertigo. She was discharged on Sunday morning. She was given a prescription for meclizine and was instructed in physical maneuvers for resolution of the vertigo. She states that she is still having symptoms. She denies any new symptoms. History Past Medical History Medical History: Denies Significant Hx Social History Alcohol Use: No Tobacco Use: No Substance Abuse: No Allergies-Medications (Allergen,Severity, Reaction): Coded Allergies: lorazepam (Unverified Adverse Reaction, Severe, "Makes me act crazy", 09/13) Home Meds Active Scripts Promethazine (Phenergan) 25 Mg Tablet, 25 MG PO Q6H Y for NAUSEA OR VOMITING, # 56 TAB 0 Refills Prov:Liang Barlow MD, R1 09/14/17 Meclizine HCl (Meclizine 25) 25 Mg Tab, 25 MG PO DAILY Y for nausea, #30 TAB Prov:Liang Barlow MD, R1 09/14/17 Reported Medications Vit-Iron Carbonyl ( Plus Iron 29-1 mg) 29 Mg Iron-1 Mg Tab, 1 TAB PO DAILY for Nutritional Supplement, #30 TAB 0 Refills 02/10/17 Review of Systems Eyes: No: Diploplia, Visual changes HENT: Vertigo Cardiovascular: No: Chest Pain or Discomfort, Syncope Respiratory: No: Short of Breath Gastrointestinal: Nausea, Vomiting Physical Exam Narrative GENERAL: Well-nourished, well-developed patient. SKIN: Warm and dry. HEAD: Normocephalic and atraumatic. Grossly normal neurologic evaluation. EYES: No scleral icterus. No injection or drainage. ENT: No nasal drainage noted. Mucous membranes pink. Airway patent. Her auditory canals are patent and tympanic membranes are clear NECK: Supple, trachea midline. No JVD. ABDOMEN/GI: Abdomen soft, non-tender, bowel sounds present, no rebound, no guarding Gravid to [-] weeks size Fundal Height: [-] GENITOURINARY: External Genitalia: intact and normal in appearance BUS glands: [-] Cervix: [-] Dilatation: [-] Effacement: [-] Station: [-] Presentation: [-] Membranes: [intact or ruptured] Uterine Contractions: [-] FHT's: Category: [-] Baseline: [-] Reactive: [-] Variability: [-] Decels: [-] EXTREMITIES: No cyanosis or edema. BACK: Nontender without obvious deformity. No CVA tenderness. NEUROLOGICAL: Awake and alert. Motor and sensory grossly within normal limits. Five out of 5 muscle strength in all muscle groups. Normal speech. Data Data Vital Signs Reviewed: Yes MDM Medical Record Reviewed: Yes Narrative Course / MDM Assessment: Vertigo 4 days Plan: The patient has not been doing the Debbie maneuver because she says it is not helping. I have encouraged her to continue this 3 times a day until she has no vertigo symptoms for 24 hours. Encouraged her to take meclizine 25 mg 4 times a day. She has a follow-up appointment with OB diagnostics tomorrow for routine ultrasound. Diagnosis Diagnosis: Primary Impression: Vertigo Additional Impression: 18 weeks gestation of Disposition: 01 DISCHARGE HOME Condition: Good Arthur Palomares MD Sep 16, 2017 11:12
== END 2017-09-16 11:49 | disposition home or self-care (01) ==
LOC: HOBED 10:09
DX: O26.892 Other specified pregnancy related conditions, second trimester (principal); R42 Dizziness and giddiness; Z3A.18 18 weeks gestation of pregnancy
CPT/HCPCS: 99282

== ENCOUNTER → 2017-09-17 | Outpatient (CLI) | payer MEDICAID | LOC: HPND 08:58 | PROVIDERS: ATTEND Obstetrics & Gynecology | DX: Z36.3 Encounter for antenatal screening for malformations (principal) | CPT/HCPCS: 76805 ==

== ENCOUNTER 2018-02-05 04:08 | Inpatient (IN) ==
[2018-02-05] MEDS ORDERED: Sod Chloride 0.9% Inj 1,000 ML IV.CONT PRN (05:00)
[2018-02-05] MEDS ORDERED: Oxytocin 30 Units/500ml Premix 30 UNITS/500 ML BAG IV.SIG ONE (05:00)
[2018-02-05] MEDS ORDERED: Citric Acid/Sodium Citrate Liq 30 ML UDC PO SCH (05:00)
[2018-02-05] MEDS ORDERED: Naloxone Inj 0.4 MG/ML Vial IV.PUSH PRN ×2 (05:00→10:30)
[2018-02-05] MEDS ORDERED: fentaNYL Citrate Inj 100 MCG/2 ML Ampul IV.PUSH PRN ×2 (05:00)
[2018-02-05] MEDS ORDERED: Sodium Chlor 0.9% Inj 500 ML IV.SIG PRN (05:00)
--- NOTE | 2018-02-05 05:07 | P.HPOB ---
History of Present Illness Primary Care Physician: No Primary Care Physician Dr. Thaddeus Beckman Chief Complaint: Contraction pain History of Present Illness: Patient is 27-year-old white female 39 weeks presents in active labor the baby in alexx breech presentation, she has no leakage of fluid no bleeding. The NST is reactive she is chavez regularly and painfully. Weeks Gestation:: 39 Para: 2 : 4 Total # of Miscarriage(s): 1 - Inpatient Certification I certify that the inpatient services were ordered in accordance with Medicare regulations governing the order. This includes certification that hospital inpatient services are reasonable and necessary and in the case of services not specified as inpatient-only under 42 CFR 419.22(n), that they are appropriately provided as inpatient services in accordance to with the 2-midnight benchmark under 43 CFR 412.3(e) Estimated Total Length of Stay (Days): 3 Plans for Post Hospital Care: Home Review of Systems All other systems reviewed negative except as stated in HPI PMFSH - History History Provided By: Patient - Tobacco History Smoking Status: Smoker, status unknown - Alcohol History How Often Do You Have a Drink Containing Alcohol: Never - Substance Use History Substance History: No History of Abuse - Travel History History of Recent Travel: No Recent Travel in the [place] Within the Last 8 Weeks: No Recent Travel Out of the Country Within the Last 8 Weeks: No Medications and Allergies Active Medications: Active Medications Citric Acid/Sodium Citrate (Sodium Citrate/Citric Acid Liq) 30 ml PO EXPLOSIVES OPERATOR ELA Stop: 02/09/18 04:59 Fentanyl Citrate (Fentanyl Inj) 50 mcg IV.PUSH Q1H PRN PRN Reason: Pain Scale 3 - 5 Fentanyl Citrate (Fentanyl Inj) 100 mcg IV.PUSH Q1H PRN PRN Reason: PAIN SCALE 6 TO 10 Lactated Ringer's (Lr 1000 Ml Inj) 1,000 mls @ 3,000 mls/hr IV.SIG UNSCH PRN PRN Reason: compromise or epidural Lidocaine HCl (Xylocaine 1% Inj) 0.1 ml I-DERMAL PRN PRN PRN Reason: For IV start Stop: 02/08/18 04:59 Allergies Allergy/AdvReac Type Severity Reaction Status Date / Time lorazepam AdvReac Severe "Makes me Verified 01/22/18 15:26 act crazy" Home Medications Medication Instructions Recorded Confirmed Type PNV 66-iron [id number] 1 tab PO DAILY 01/22/18 01/22/18 History Exam Vital signs: Vital Signs 02/05/18 04:22 02/05/18 04:30 Temperature 98.0 F Pulse Rate 74 Respiratory Rate 18 Blood Pressure 139/81 Intake & Output 02/04/18 02/04/18 02/05/18 06:59 18:59 06:59 Weight 79.379 kg Narrative: GENERAL: Well-nourished, well-developed patient. SKIN: Warm and dry. HEAD: Normocephalic and atraumatic. EYES: No scleral icterus. No injection or drainage. ENT: No nasal drainage noted. Mucous membranes pink. Airway patent. NECK: Supple, trachea midline. No JVD. CARDIOVASCULAR: Regular rate and rhythm without murmurs, gallops, or rubs. RESPIRATORY: Breath sounds equal bilaterally. No accessory muscle use. BREASTS: Bilateral exam showed no masses , no retractions, no nipple discharge. ABDOMEN/GI: Abdomen soft, non-tender, bowel sounds present, no rebound, no guarding Gravid to [-39] weeks size Fundal Height: [-37] GENITOURINARY: External Genitalia: intact and normal in appearance BUS glands: [-] Cervix: [-post] Dilatation: [-6-7] Effacement: [-100] Station: [-2] Presentation: [breech-] Membranes: [intact Uterine Contractions: [reg-] FHT's: Category: [1-] Baseline: [-134] Reactive: [R-] Variability: [mod-] Decels: [-0] EXTREMITIES: No cyanosis or edema. BACK: Nontender without obvious deformity. No CVA tenderness. NEUROLOGICAL: Awake and alert. Motor and sensory grossly within normal limits. Five out of 5 muscle strength in all muscle groups. Normal speech. Caprini VTE Risk Assessment Caprini VTE Risk Assessment: No/Low Risk (score <= 1) Caprini Risk Assessment Model: Point Value = 1 Point Value = 2 Point Value = 3 Point Value = 5 Age 41-60 Minor surgery BMI > 25 kg/m2 Swollen legs Varicose veins or History of unexplained or recurrent spontaneous Oral contraceptives or hormone replacement Sepsis (< 1 month) Serious lung disease, including pneumonia (< 1 month) Abnormal pulmonary function Acute myocardial infarction Congestive heart failure (< 1 month) History of inflammatory bowel disease Medical patient at bed rest Age 61-74 Arthroscopic surgery Major open surgery (> 45 min) Laparoscopic surgery (> 45 min) Malignancy Confined to bed (> 72 hours) Immobilizing plaster cast Central venous access Age >= 75 History of VTE Family history of VTE Factor V Leiden Prothrombin [id number] Lupus anticoagulant Anticardiolipin antibodies Elevated serum homocysteine Heparin-induced thrombocytopenia Other congenital or acquired thrombophilia Stroke (< 1 month) Elective arthroplasty Hip, pelvis, or leg fracture Acute spinal cord injury (< 1 month) Prophylaxis Regimen: Total Risk Factor Score Risk Level Prophylaxis Regimen 0-1 Low Early ambulation 2 Moderate Order ONE of the following: *Sequential Compression Device (SCD) *Heparin 5000 units SQ BID 3-4 Higher Order ONE of the following medications: *Heparin 5000 units SQ TID *Enoxaparin/Lovenox 40 mg SQ daily (WT < 150 kg, CrCl > 30 mL/min) *Enoxaparin/Lovenox 30 mg SQ daily (WT < 150 kg, CrCl > 10-29 mL/min) *Enoxaparin/Lovenox 30 mg SQ BID (WT < 150 kg, CrCl > 30 mL/min) AND/OR *Sequential Compression Device (SCD) 5 or more Highest Order ONE of the following medications: *Heparin 5000 units SQ TID (Preferred with Epidurals) *Enoxaparin/Lovenox 40 mg SQ daily (WT < 150 kg, CrCl > 30 mL/min) *Enoxaparin/Lovenox 30 mg SQ daily (WT < 150 kg, CrCl > 10-29 mL/min) *Enoxaparin/Lovenox 30 mg SQ BID (WT < 150 kg, CrCl > 30 mL/min) AND *Sequential Compression Device (SCD) Assessment and Plan - Diagnosis (1) 39 weeks gestation of Code(s): Z3A.39 - 39 weeks gestation of Status: Acute (2) Uterine contractions during Code(s): O62.2 - Other uterine inertia Status: Acute (3) Breech presentation Code(s): O32.1XX0 - Maternal care for breech presentation, not applicable or unspecified Status: Acute (4) Breech presentation Code(s): O32.1XX0 - Maternal care for breech presentation, not applicable or unspecified Status: Acute - Plan Plan for this patient is to admit to labor and delivery we have done an ultrasound confirms baby's head is not in a hyperextended state 9 oh the weight is within normal limits is not an overly enlarged baby and she was offered the chance to labor and delivery as a vaginal breech since she is in active labor and is her third child she was willing to accept that offer to try to deliver vaginally as a breech
[2018-02-05] MEDS ORDERED: fentaNYL 2MCG-Bupiv 0.125% Epi 150 ML EPIDURAL ONE (05:08)
[2018-02-05 05:17] LABS: Baso # (Auto) 0.1 th/mm3 (0.0-0.2); Baso % (Auto) 0.5 % (0.0-2.0); Eos # (Auto) 0.1 th/mm3 (0.0-0.4); Eos % (Auto) 0.6 % (0.0-4.0); Hematocrit 38.5 % (35.0-46.0); Hemoglobin 13.1 gm/dL (11.6-15.3); Lymph # (Auto) 1.6 th/mm3 (1.0-4.8); Lymph % (Auto) 14.3 % (9.0-44.0); Mean Corpuscular HGB Conc 34.1 % (32.0-36.0); Mean Corpuscular Hemoglobin 32.3 pg (27.0-34.0); Mean Corpuscular Volume 94.8 fL (80.0-100.0); Mean Platelet Volume 10.8 fL (7.0-11.0); Mono # (Auto) 0.8 th/mm3 (0.0-0.9); Mono % (Auto) 6.9 % (0.0-8.0); Neut # (Auto) 8.7 th/mm3 (1.8-7.7); Neut % (Auto) 77.7 % (16.0-70.0); Platelet Count 144 th/mm3 (150-450); Red Blood Count 4.06 mil/mm3 (4.00-5.30); Red Cell Distribution Width 12.8 % (11.6-17.2); White Blood Count 11.2 th/mm3 (4.0-11.0)
[2018-02-05 05:23] LABS: Amphetamine Urine With Conf Neg (Neg); Benzodiazepine Urine With Conf Neg (Neg)
[2018-02-05 05:25] LABS: Bilirubin,Urine Negative (Negative); Clarity,Urine Clear (Clear); Color,Urine Yellow (Yellw/Straw); Glucose,Urine (UA) Negative (Negative); Leukocyte Esterase,Urine Negative (Negative); Mucus,Urine Few /lpf (Occasional); Nitrite,Urine Negative (Negative); Specific Gravity,Urine 1.013 (1.002-1.035); Squamous Epithelial Cell,Urine 1 /hpf (0-5)
[2018-02-05] MEDS ORDERED: Lidocaaine 1.5%/Epinephrine 1:200,000 PF Inj 5 ML Amp ONE (05:33)
[2018-02-05] MEDS ORDERED: Lidocaine PF 1% Inj 5 ML Vial ONE (05:33)
[2018-02-05] MEDS ORDERED: fentaNYL 2MCG-Bupiv 0.125% Epi 150 ML EPIDURAL PRN (06:32)
[2018-02-05] MEDS ORDERED: fentaNYL Citrate Inj 100 MCG/2 ML Ampul EPIDURAL ONE (06:32)
[2018-02-05] MEDS ORDERED: Lidocaine 1% Inj 50 ML Vial ONE (07:37)
[2018-02-05] MEDS ORDERED: Zolpidem Tartrate 5 MG Tablet PO PRN (10:30)
[2018-02-05] MEDS ORDERED: Witch Hazel 50%/Glyderin 12.5% 40 Pad Jar RECTAL PRN (10:30)
[2018-02-05] MEDS ORDERED: Bisacodyl 10 MG Supp RECTAL PRN (10:30)
[2018-02-05] MEDS ORDERED: Oxytocin 30 Units/500ml Premix 30 UNITS/500 ML BAG IV.CONT PRN (10:30)
[2018-02-05] MEDS ORDERED: Benzocaine 20% Top Spray 60 ML Can TOPICAL PRN (10:30)
--- NOTE | 2018-02-05 10:30 | P.OBDELI ---
Weeks Gestation: 39 Patient Started Active Labor: Yes Active Labor Start Date: 02/05/18 Active Labor Start Time: 05:00 Medical Induction of Labor: No Artificial Rupture of Membrane: Yes Anesthesia: Epidural Episiotomy: none Vaginal Delivery: Normal, Spontaneous Presentation: Breech Nuchal Cord: None Delayed Cord Clamping (45 sec): Yes Placenta: Manual removal Laceration: None Estimated blood loss (mL): 200 : Male ( 7/8 )
[2018-02-05 10:42] LABS: Cord Arterial Blood HCO3 22.7
[2018-02-05] MEDS ORDERED: Measles/Mumps/Rubella Vaccine Inj 0.5 ML Vial SQ ONE (16:00)
[2018-02-05] MEDS ORDERED: Diphtheria/Tetanus/Pertussis Vaccine Inj 0.5 ML Syringe IM ONE (16:00)
[2018-02-05] MEDS: Acetaminophen 325 MG Tablet PO PRN (20:00)
[2018-02-05] MEDS: Senna/Docusate Sodium 8.6/50 MG Tablet PO SCH (21:15)
[2018-02-06] MEDS: Acetaminophen 325 MG Tablet PO PRN ×4 (00:17→16:51)
--- NOTE | 2018-02-06 10:35 | P.PNOB ---
Subjective Post day: 1 Interval history: Patient's pain is well-controlled. Patient reports eating and drinking without any nausea or vomiting. Patient reports minimal bleeding. Patient has passed gas but no bowel movements. Patient is walking without lower extremity pain or shortness of breath. Objective Vital Signs/I&O: Vital Signs 02/05/18 10:44 02/05/18 10:45 02/05/18 11:00 Temperature 98.3 F Pulse Rate 80 Respiratory Rate 18 Blood Pressure 129/79 02/05/18 11:08 02/05/18 12:31 02/05/18 13:20 Temperature 98.5 F Pulse Rate 79 76 80 Respiratory Rate 16 Blood Pressure 125/82 135/88 124/80 02/05/18 19:57 02/06/18 08:00 Temperature 98.0 F 98.0 F Pulse Rate 75 75 Respiratory Rate 18 20 Blood Pressure 135/73 139/89 Intake & Output 02/05/18 02/06/18 02/06/18 18:59 06:59 18:59 Intake Total 1999 Balance 1999 Intake: IV 1999 LR 1000 mL Inj 1,000 ML @ 125 1999 mls/hr IV.CONT .Q8H [facility] Rx#: [id number] Result Diagrams: 02/05/18 05:00 Objective Remarks: GENERAL: Well-nourished, well-developed patient. CARDIOVASCULAR: Regular rate and rhythm without murmurs, gallops, or rubs. RESPIRATORY: Breath sounds equal bilaterally. No accessory muscle use. ABDOMEN/GI: Abdomen soft, non-tender. Fundus: Firm, non-tender at umbilicus. GENITOURINARY: Light to moderate bleeding. EXTREMITIES: No cyanosis or edema, non-tender, without signs of DVT. Medications and IVs: Active Medications Acetaminophen (Tylenol) 650 mg PO Q4H PRN PRN Reason: PAIN SCALE 1 TO 2 Last Admin: 02/06/18 04:36 Dose: 650 mg Al Hydroxide/Mg Hydroxide (Milk Of Magnesia Liq) 30 ml PO Q12H PRN PRN Reason: Mild Constipation Benzocaine (Americaine 20% Top [place]) 1 spray TOPICAL Q4H PRN PRN Reason: For Perineum Discomfort Last Admin: 02/05/18 12:11 Dose: 1 spray Bisacodyl (Dulcolax Supp) 10 mg RECTAL DAILY PRN PRN Reason: SEVERE CONSITIPATION Citric Acid/Sodium Citrate (Sodium Citrate/Citric Acid Liq) 30 ml PO GRADER TENDER [facility] Stop: 02/09/18 04:59 Fentanyl Citrate (Fentanyl Inj) 50 mcg IV.PUSH Q1H PRN PRN Reason: Pain Scale 3 - 5 Fentanyl Citrate (Fentanyl Inj) 100 mcg IV.PUSH Q1H PRN PRN Reason: PAIN SCALE 6 TO 10 Last Admin: 02/05/18 05:10 Dose: 100 mcg Lactated Ringer's (Lr 1000 Ml Inj) 1,000 mls @ 3,000 mls/hr IV.SIG UNSCH PRN PRN Reason: compromise or epidural Last Admin: 02/05/18 05:00 Dose: 3,000 mls/hr Lactated Ringer's (Lr 1000 Ml Inj) 1,000 mls @ 125 mls/hr IV.CONT .Q8H [facility] Last Admin: 02/06/18 06:36 Dose: Not Given Sodium Chloride (Ns Inj) 500 mls @ 1,000 mls/hr IV.SIG UNSCH PRN PRN Reason: SEE LABEL COMMENTS Sodium Chloride (Ns Inj) 1,000 mls @ 100 mls/hr IV.CONT .Q10H PRN PRN Reason: SEE LABEL COMMENTS Fentanyl/Bupivacaine/Sodium Chlor (Fentanyl 2 Mcg-Bupiv 0.125% Epi) 150 mls @ 12 mls/hr EPIDURAL PRN PRN PRN Reason: for Labor Pain Oxytocin (Pitocin 30 Units/Ns 500 Ml Premix) 30 units in 500 mls @ 100 mls/hr IV.CONT UNSCH PRN PRN Reason: Heavy bleeding Ibuprofen (Motrin) 800 mg PO Q8H PRN PRN Reason: For Cramping Last Admin: 02/06/18 04:37 Dose: 800 mg Lactulose (Lactulose Liq) 30 ml PO DAILY PRN PRN Reason: SEVERE CONSITIPATION Lidocaine HCl (Xylocaine 1% Inj) 0.1 ml I-DERMAL PRN PRN PRN Reason: For IV start Stop: 02/08/18 04:59 Lidocaine HCl (Xylocaine 1% Inj) 10 ml INFILTRATN PRN PRN PRN Reason: For episiotomy repair Stop: 02/07/18 04:59 Mineral Oil (Muri-Lube Oil) 10 ml TOPICAL PRN PRN PRN Reason: PRN perineal massage Naloxone HCl (Narcan Inj) 0.1 mg IV.PUSH Q2M PRN PRN Reason: for opiate reversal Naloxone HCl (Narcan Inj) 0.1 mg IV.PUSH Q2M PRN PRN Reason: for opiate reversal Ondansetron HCl (Zofran Odt) 4 mg PO Q6H PRN PRN Reason: NAUSEA OR VOMITING Senna/Docusate Sodium (Elena-Colace) 1 tab PO BID [facility] Last Admin: 02/05/18 21:15 Dose: 1 tab Sennosides (Senokot) 17.2 mg PO Q12H PRN PRN Reason: Moderate Constipation Sodium Chloride (Ns Flush) 2 ml IV.FLUSH BID [facility] Last Admin: 02/05/18 21:15 Dose: 2 ml Sodium Chloride (Ns Flush) 2 ml IV.FLUSH PRN PRN PRN Reason: FLUSH AFTER USING IV ACCESS Witch Heidi/Glycerin (Tucks Pads) 1 applicatio RECTAL QID PRN PRN Reason: HEMORRHOIDS Last Admin: 02/05/18 12:11 Dose: 1 applicatio Zolpidem Tartrate (Ambien) 5 mg PO HS PRN PRN Reason: SLEEP Assessment and Plan - Diagnosis (1) Vaginal delivery Code(s): O80 - Encounter for full-term uncomplicated delivery Status: Acute Plan: Patient was counseled to do 6 weeks of pelvic rest. Patient was counseled to follow up in 6 weeks. Patient requested follow-up and contraception. --AF VSS --Continue routine care --Motrin and Percocet when necessary for pain --Encourage OOB --Pelvic rest for 6 weeks will need follow-up appointment at that time. --Contraception: --Anticipate discharge today
[2018-02-06] MEDS: Senna/Docusate Sodium 8.6/50 MG Tablet PO SCH (13:32)
--- NOTE | 2018-02-06 15:40 | P.PCNCIRC ---
Procedure Date: 02/06/18 Procedure Time: 15:00 Procedure: Circumcision Pre-procedure diagnosis: circumcision Post-procedure diagnosis: circumcision Informed Consent: The risks, benefits, indications, potential complications, and alternatives were explained to the patient/family and informed consent obtained. The baby was brought to the procedure room where a time-out was done to ID the patient and the procedure. Performing Physician: Ramya Nash MD, R2 Japanese Tutor , Dental Assistant Instructor Anesthesia used: 1 % lidocaine injected Type of block: dorsal penile block Device used: Gomco 1.3 Description: The baby was prepped and draped in a sterile fashion. The procedure followed standard technique. The baby tolerated the procedure well without complication. Findings: foreskin Estimated blood loss: <5ml Specimen: No
[2018-02-06 20:34] VITALS: TEMP 98.1
--- NOTE | 2018-02-07 08:05 | P.PNOB ---
Subjective Post day: 2 Interval history: day #2 AFVSS overnight. Decreased lochia. Denies dysuria. No breast pain. Appetite good. No nausea or vomiting. Ambulating well. Denies calf pain or shortness of breath. Otherwise, she is doing well this morning and has no other complaints. Objective Vital Signs/I&O: Vital Signs 02/06/18 20:00 Temperature 98.1 F Pulse Rate 72 Respiratory Rate 18 Blood Pressure 134/94 H Result Diagrams: 02/05/18 05:00 Objective Remarks: GENERAL: Well-nourished, well-developed patient. CARDIOVASCULAR: Regular rate and rhythm without murmurs, gallops, or rubs. RESPIRATORY: Breath sounds equal bilaterally. No accessory muscle use. ABDOMEN/GI: Abdomen soft, non-tender. Fundus: Firm, non-tender at umbilicus. GENITOURINARY: Light to moderate bleeding. EXTREMITIES: No cyanosis or edema, non-tender, without signs of DVT. Medications and IVs: Active Medications Acetaminophen (Tylenol) 650 mg PO Q4H PRN PRN Reason: PAIN SCALE 1 TO 2 Last Admin: 02/06/18 16:51 Dose: 650 mg Al Hydroxide/Mg Hydroxide (Milk Of Magnesia Liq) 30 ml PO Q12H PRN PRN Reason: Mild Constipation Benzocaine (Americaine 20% Top [place]) 1 spray TOPICAL Q4H PRN PRN Reason: For Perineum Discomfort Last Admin: 02/05/18 12:11 Dose: 1 spray Bisacodyl (Dulcolax Supp) 10 mg RECTAL DAILY PRN PRN Reason: SEVERE CONSITIPATION Citric Acid/Sodium Citrate (Sodium Citrate/Citric Acid Liq) 30 ml PO TECHNICAL ARTIST [facility] Stop: 02/09/18 04:59 Fentanyl Citrate (Fentanyl Inj) 50 mcg IV.PUSH Q1H PRN PRN Reason: Pain Scale 3 - 5 Fentanyl Citrate (Fentanyl Inj) 100 mcg IV.PUSH Q1H PRN PRN Reason: PAIN SCALE 6 TO 10 Last Admin: 02/05/18 05:10 Dose: 100 mcg Lactated Ringer's (Lr 1000 Ml Inj) 1,000 mls @ 3,000 mls/hr IV.SIG UNSCH PRN PRN Reason: compromise or epidural Last Admin: 02/05/18 05:00 Dose: 3,000 mls/hr Lactated Ringer's (Lr 1000 Ml Inj) 1,000 mls @ 125 mls/hr IV.CONT .Q8H [facility] Last Admin: 02/06/18 15:00 Dose: Not Given Sodium Chloride (Ns Inj) 500 mls @ 1,000 mls/hr IV.SIG UNSCH PRN PRN Reason: SEE LABEL COMMENTS Sodium Chloride (Ns Inj) 1,000 mls @ 100 mls/hr IV.CONT .Q10H PRN PRN Reason: SEE LABEL COMMENTS Fentanyl/Bupivacaine/Sodium Chlor (Fentanyl 2 Mcg-Bupiv 0.125% Epi) 150 mls @ 12 mls/hr EPIDURAL PRN PRN PRN Reason: for Labor Pain Oxytocin (Pitocin 30 Units/Ns 500 Ml Premix) 30 units in 500 mls @ 100 mls/hr IV.CONT UNSCH PRN PRN Reason: Heavy bleeding Ibuprofen (Motrin) 800 mg PO Q8H PRN PRN Reason: For Cramping Last Admin: 02/07/18 00:44 Dose: 800 mg Lactulose (Lactulose Liq) 30 ml PO DAILY PRN PRN Reason: SEVERE CONSITIPATION Lidocaine HCl (Xylocaine 1% Inj) 0.1 ml I-DERMAL PRN PRN PRN Reason: For IV start Stop: 02/08/18 04:59 Mineral Oil (Muri-Lube Oil) 10 ml TOPICAL PRN PRN PRN Reason: PRN perineal massage Naloxone HCl (Narcan Inj) 0.1 mg IV.PUSH Q2M PRN PRN Reason: for opiate reversal Ondansetron HCl (Zofran Odt) 4 mg PO Q6H PRN PRN Reason: NAUSEA OR VOMITING Senna/Docusate Sodium (Elena-Colace) 1 tab PO BID [facility] Last Admin: 02/06/18 13:32 Dose: Not Given Sennosides (Senokot) 17.2 mg PO Q12H PRN PRN Reason: Moderate Constipation Sodium Chloride (Ns Flush) 2 ml IV.FLUSH BID [facility] Last Admin: 02/06/18 13:32 Dose: Not Given Sodium Chloride (Ns Flush) 2 ml IV.FLUSH PRN PRN PRN Reason: FLUSH AFTER USING IV ACCESS Witch Heidi/Glycerin (Tucks Pads) 1 applicatio RECTAL QID PRN PRN Reason: HEMORRHOIDS Last Admin: 02/05/18 12:11 Dose: 1 applicatio Zolpidem Tartrate (Ambien) 5 mg PO HS PRN PRN Reason: SLEEP Assessment and Plan - Diagnosis (1) Vaginal delivery Code(s): O80 - Encounter for full-term uncomplicated delivery Status: Acute - Plan 27y/o female who is PPD#2 s/p vaginal delivery. -Continue routine care. -Motrin PRN pain. -Encouraged OOB. Advised pelvic rest for 6 wks. -Re: ctrl, she would like to follow-up with outpatient OB for a tubal ligation. Appointment set with outpatient OB for . -D/C likely today. [email or web address]
[2018-02-07 09:37] VITALS: PULSE 86; RESP 20
[2018-02-07] MEDS: Acetaminophen 325 MG Tablet PO PRN (10:55)
[2018-02-07 11:25] VITALS: BP 130/73
== END 2018-02-07 10:59 | disposition home or self-care (01) ==
LOC: HOBED 04:08 → H2E 04:54 → H1EA 13:21
PROVIDERS: ADMIT Obstetrics & Gynecology Maternal & Fetal Medicine; ATTEND Obstetrics & Gynecology Maternal & Fetal Medicine